=== PATIENT | male | born 1985 | race Caucasian/White ===

== ENCOUNTER 2016-11-16 02:30 | Emergency (ER) | payer OTHER ==
[2016-11-16 04:29] VITALS: BP 95/60
== END 2016-11-16 04:29 | disposition home or self-care (01) ==
LOC: ED 02:30
DX: S91.212A Laceration without foreign body of left great toe with damage to nail, initial encounter (principal); W20.8XXA Other cause of strike by thrown, projected or falling object, initial encounter; Y93.89 Activity, other specified; Y92.89 Other specified places as the place of occurrence of the external cause; Y99.8 Other external cause status
CPT/HCPCS: J2001; Q0092